=== PATIENT | male | born 1985 | race Caucasian/White ===

== ENCOUNTER → 2021-12-13 03:04 | Outpatient (CLI) | payer OTHER, SELFPAY ==
[2021-12-13 17:26] LABS: SARS-CoV-2 RNA PCR Negative
== END ==
PROVIDERS: Visit Provider Surgery
DX: Z01.812 Encounter for preprocedural laboratory examination (principal); Z20.822 Contact with and (suspected) exposure to COVID-19
CPT/HCPCS: C9803; U0003; U0005

== ENCOUNTER 2021-12-13 08:57 | Outpatient (CLI) | payer OTHER, SELFPAY ==
[2021-12-13 09:56] LABS: Anion Gap 10 mmol/L (8-16); Blood Urea Nitrogen 16 mg/dL (9-20); Carbon Dioxide 28 mmol/L (22-30); Chloride 101 mmol/L (98-107); Estimated Glomerular Filt Rate > 60; Glucose 102 mg/dL (65-110); Potassium 3.9 mmol/L (3.4-5.0); Sodium 139 mmol/L (137-145)
== END 2021-12-13 08:58 | disposition home or self-care (01) ==
LOC: ANHSURGERY 09:03
PROVIDERS: Anesthesiology; PCP Physician Assistant Medical; Visit Provider Surgery
DX: Z79.899 Other long term (current) drug therapy (principal)
CPT/HCPCS: 36415; 80048

== ENCOUNTER 2021-12-16 00:51 | Day surgery (SDC) | payer OTHER, SELFPAY ==
[2021-12-08 10:55] VITALS: BMI 33.5
--- NOTE | 2021-12-08 11:07 | PC.NURSE ---
Report to the Outpatient Waiting Room, entrance under the green pavilion located off [facility], at time 10:00 on date 12/16/21. OR Time: 12:00. - You will be asked a series of questions to screen for COVID 19 for your protection. - A mask is required within the hospital. - No visitors are allowed at this time. Preoperative COVID Testing Requirements: COVID TEST 12/13 AT 8:45 No COVID Test needed if: (proof is required; if not received patient will have Rapid Test prior to entry) - Patient has received COVID Vaccine at least 14 days prior to procedure date or - Patient has positive COVID test result within last 90 days of surgery date. COVID Test needed if above criteria is not met If not COVID vaccinated a COVID test must be conducted within 72 hours of surgery and patient is asked to isolate self from time of testing until procedure. You will go to the [facility] for your COVID testing. The [facility] is located at the corner of [address] [facility]. You will only be called if COVID results are positive and your surgeon may reschedule your elective surgery date. Patients may have clear liquids (water, carbonated beverages, clear teas, apple juice) until 3 hours prior to surgery (9:00) with a maximum of 20 ounces. - No food from midnight until time of surgery Take the following medications with a SIP of water the morning of surgery: NONE Medications to discontinue per physician: N/A Date to take last dose: N/A Please no make-up, nail icelandic, hairspray, perfume, deodorant, or body powder the day of surgery. No jewelry (including any body piercings) or valuables the day of surgery, leave them at home. Please take a shower or bath the night before, or the morning of, surgery with an antibacterial soap. Wear comfortable, loose fitting clothing. HIBICLENS SHOWER - Jewelry must be removed prior to entering the operating room. Rings and piercings that are not removed may be cut off. - The hospital will not accept responsibility for valuables. - Please leave all valuables, including medications, at home the day of surgery. If you are going home after surgery, a licensed front end loader driver must drive you home. - NO public transportation without another adult. - We recommend that an adult stay with you for 24 hours following discharge. - We also recommend that you do not drive, make important decision, drink alcoholic beverages, or take any drugs that were not prescribed by your health care provider for at least 24 hours after your discharge time. Follow any additional instructions given to you from your surgeon. Telephone instructions given to LAURA BRANHAM and asked if any additional questions and then verbalized understanding. Patient advised to call surgeon office or pre surgery nurse liaison [phone] if any additional questions.
--- NOTE | 2021-12-14 16:13 | PM.SD2 ---
Same Day Admit/Disch: HPI History of Present Illness Chief complaint: Rt Ing Hernia Narrative: Jacinto Maxwell is a 35 year old male Who noticed a lump per bulge in the right groin back in September. He noticed this was painful when coughing sneezing or doing heavy lifting. He gets relief by lying down and massaging the area. He was seen in the office and found to have a right inguinal hernia. He is taken to surgery now for repair. 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 Spiritual care concerns: No Same Day Admit/Disch: Med Pre-admit Medications Home Medications Medication Instructions Recorded Confirmed Type lisinopril 20 1 tablet PO DAILY 10/26/21 12/16/21 History mg-hydrochlorothiazide 12.5 mg tablet hydrocodone-acetaminophen 1 - 2 tablet PO Q6H PRN #7 tablet 12/16/21 Rx ketorolac 10 mg PO Q6H 4 Days #16 tablet 12/16/21 Rx Exam Const: General: comfortable, no acute distress, alert and awake HENMT: Head: normocephalic and atraumatic Mouth: Yes Normal oral and palatal mucosa present Eyes: Conjunctivae: conjunctivae normal Pupils: Equal, round and reactive pupils present EOM: EOMs intact bilaterally Neck: Neck: normal visual inspection, no lymphadenopathy and nontender Resp: Effort & Inspection: normal respiratory effort Auscultation: clear to auscultation bilaterally Cardio: Rate: regular rate Rhythm: regular rhythm Heart sounds: no gallops, no murmurs and no rubs GI: Inspection: non-distended GI Palp: Yes Soft to palpation, No Tenderness to palpation present (GI), No Hepatomegaly present and No Splenomegaly present : Male General Exam: Yes hernia ( reducible right inguinal hernia, no left inguinal hernia) and No tenderness Penis: Yes normal penis Scrotum: scrotum normal Testes: Testes normal Skin: Lesions: no lesions Rashes: no rashes Neuro: General: no focal motor deficits and CN's II-XI intact bilaterally Cranial nerves: Yes Equal, round and reactive pupils present, Yes Bilaterally intact EOM present, Yes facial symmetry and Yes Midline tongue present Speech: normal speech Motor exam (neuro): 5/5 motor strength present throughout and Motor abnormalities not present Extrem: General: no clubbing, cyanosis or edema and edema Psych: Affect: normal affect Thought process: Normal thought process present Insight: Good insight present (Psych) DS: Summary Time Spent with Patient Time attestation: Total time spent providing and/or coordinating discharge services: DS: Admitting Diagnosis Discharge Date 12/16/2021 Admitting Diagnosis right inguinal hernia- plan to repair under local anesthesia with IV sedation. The procedure the risks the benefits have been discussed. All questions were answered. He agrees to go ahead. Discharge Plan Discharge Patient Disposition: Home, Self-Care Discharge Instructions: 1. May shower the day after surgery over incision. 2. Call office for: -Wound increasingly painful or bleeding -Vomiting -Fever of greater than 101 degrees 3. Expect some blood on dressing or on skin. 4. If no bowel movement for three days, take 1 oz. (30 ml) Milk of Magnesia; if no results, take Fleets enema. 5. No heavy lifting > 15-20 pounds for 2 weeks. 6. No driving for 3 days or while taking narcotic pain medications. 7. Ice to groin for 8 darcy
[2021-12-16 10:26] VITALS: BP 161/84; PULSE 65; RESP 16; TEMP 36.6; O2SAT 100
[2021-12-16] MEDS: ACETAMINOPHEN 500 MG TABLET 1000 MG PO (10:36)
--- NOTE | 2021-12-16 10:47 | P.PNAN_ITS ---
Anes - Initial Pre Proc Eval Procedure: Operation Date: 12/16/21 12:00 Proposed Procedures p Right Inguinal Hernia Repair - Leobardo Peñaloza MD Date/Time: 12/16/21 10:47 Surgeon: Leobardo Peñaloza MD Pre Op Diagnosis: Rt Ing Hernia Patient Data Age: 35 Gender: M Height: 1.83 m Weight: 110.6 kg Last Vital Signs Temp 36.6 C 12/16/21 10:26 Pulse 65 12/16/21 10:26 Resp 16 12/16/21 10:26 BP 161/84 H 12/16/21 10:26 Pulse Ox 100 12/16/21 10:26 Allergies Allergy/AdvReac Type Severity Reaction Status Date / Time No Known Allergies Allergy Verified 12/16/21 10:34 Home Medications Medication Instructions Recorded Confirmed Type lisinopril 20 1 tablet PO DAILY 10/26/21 12/16/21 History mg-hydrochlorothiazide 12.5 mg tablet Patient hx anesthesia problems: none Family hx anesthesia problems: none Results Review: All pre-operative results and documents have been reviewed as part of the pre-operative evaluation. 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 Informed Consent: The patient's anesthetic plan and its attendant risks and benefits were discussed with the patient/family/POA. Questions were solicited and answers provided to the satisfaction of the patient/family/POA.
--- NOTE | 2021-12-16 10:50 | SUR.PREOP ---
[address] vergara about slight rash to right abdomen,no drainage,scabbed.
[2021-12-16] MEDS: LACTATED RINGERS 1,000 ML 30 ML IV CONT ×2 (11:12→13:39)
[2021-12-16] MEDS: KETOROLAC 15 MG/ML VIAL (*BKC) IV PUSH (11:14)
--- NOTE | 2021-12-16 11:53 | WPDHPUPDATE1 ---
History and Physical Update Update Date/Time: 12/16/21 11:53 History and Physical has been reviewed, including an updated exam of the patient. There are NO changes in the patient's condition. Risks, benefits, and alternatives have been discussed and questions answered. Patient agrees to proceed with procedure.
[2021-12-16] MEDS: ceFAZolin 2 GM/D5W 50 ML 2 GM/50 ML BAG IVPB (11:59)
[2021-12-16] MEDS: BUPIVACAINE/EPINEPHRINE 0.5% 30 ML VIAL INFILTRATE (12:18)
[2021-12-16 13:39] VITALS: BP 139/81; PULSE 59; RESP 16; O2SAT 98
--- NOTE | 2021-12-16 13:51 | P.OP_ITS ---
Procedure Note - Detailed Date of Procedure 12/16/21 Pre-op Diagnosis Rt Ing Hernia Post-op Diagnosis same Procedure Performed Right inguinal hernia repair with large perfix plug light Surgeon Leobardo Peñaloza MD Spinner [employer] Nuvia Ayon [employer] Anesthesia MAC and local (0.5% Marcaine with epinephrine, Xaracoll) Indications Patient is a 35-year-old man with a right inguinal bulge which is occasionally painful. He was noted on exam to have a right inguinal hernia and is taken to surgery for repair Findings Showed a large indirect right inguinal hernia. Description of Procedure Patient was taken to surgery and IV sedation was administered. Prep and drape was carried out. The reposed incision was marked on the skin. Local anesthetic was infiltrated into the skin and the deeper subcutaneous. Incision was made dissection was carried down through the subcutaneous. Crossing veins were cauterized and divided. We dissected through Belkys's fascia and down to the external oblique aponeurosis. The external oblique aponeurosis was exposed as was the external ring. Additional local was infiltrated deep to the aponeurosis in the area of the inguinal canal and the spermatic cord. The external oblique was then opened laterally and extended medially through the external ring. The leaves of the aponeurosis were freed from the underlying inguinal canal contents. The cord was mobilized medially on a Laura drain. The cord was then mobilized laterally back to the internal ring. We then dissected in the anteromedial aspect of the spermatic cord. The hernia sac was found. It was dissected free from the cremasteric fibers and cord structures. We dissected this back to the internal ring and to a high dissection. The sac was dunked into the retroperitoneum. A large PerFix plug light was placed in the defect. It was sutured to the transversalis fascia with interrupted 3-0 Vicryl suture. We then cut the mesh to the appropriate size and placed it over the inguinal can al floor as a patch. The lateral leaves were passed beyond the cord. It fit nicely. We then placed the 1st piece of Xaracoll over the patch. The external oblique aponeurosis was then closed over the the spermatic cord. I should point out that the ileoinguinal nerve was left attached to the cord and was un injured throughout the surgery. Once the external oblique was closed, we then placed an other piece of Xaracoll over the aponeurosis. Belkys's fascia was closed with interrupted 3-0 Vicryl suture. The last piece of Xaracoll was placed in the subcutaneous. The skin was loosely approximated with 4-0 Vicryl subcuticular skin sutures. A running 4-0 Monocryl skin stitch was then placed. The wound was dressed with Exofin surgical adhesive. The patient was awakened and taken to recovery in good condition. Sponge and needle counts were correct x2. Implants Large PerFix plug light, Xaracoll Estimated Blood Loss -5 Drains No Packing No Pathology none sent Complications No immediate complications Condition stable Disposition same day
[2021-12-16] MEDS: ONDANSETRON INJ 4 MG/2 ML VIAL IV PUSH (14:03)
[2021-12-16 14:05] VITALS: BP 142/59; PULSE 58; RESP 16; O2SAT 98
[2021-12-16 14:35] VITALS: BP 171/98; PULSE 47; RESP 16; O2SAT 98
== END 2021-12-16 15:00 | disposition home or self-care (01) ==
PROVIDERS: PCP Physician Assistant Medical; Visit Provider Surgery
PROC: (CPT 49505; principal; 2021-12-16 12:00)
DX: K40.90 Unilateral inguinal hernia, without obstruction or gangrene, not specified as recurrent (principal); I10 Essential (primary) hypertension; E66.9 Obesity, unspecified; Z68.33 Body mass index [BMI] 33.0-33.9, adult
CPT/HCPCS: 49505; 36415; 80048; A9270; C1781; C9803; J0690; J1885; J2250; J2405; J2704; J3010; J7120; U0003; U0005